=== PATIENT | female | born 1965 | race Caucasian/White ===

== ENCOUNTER → 2016-12-17 | Outpatient (CLI) | payer BC | END | disposition disaster alternative care site (69) | LOC: GRAD 17:00 | DX: Z01.818 Encounter for other preprocedural examination (principal); M79.645 Pain in left finger(s); S62.633A Displaced fracture of distal phalanx of left middle finger, initial encounter for closed fracture; S62.623A Displaced fracture of middle phalanx of left middle finger, initial encounter for closed fracture; V29.9XXA Motorcycle rider (driver) (passenger) injured in unspecified traffic accident, initial encounter ==